=== PATIENT | female | born 1960 | race Asian ===

== ENCOUNTER 2017-01-28 14:10 | Emergency (ER) | payer OTHER ==
[2017-01-28 14:18] VITALS: BP 157/85
--- NOTE | 2017-01-28 14:30 | ED Physician Documentation ---
PD HPI SKIN - Stated complaint Stated Complaint: FACE ITCHING, SWELLING - Chief complaint Chief Complaint: Allergic Rx - History obtained from History obtained from: Patient - History of Present Illness Timing - onset: Other (The last 3 days or so without specific inciting factor she has had itchiness and facial swelling bilaterally. 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 - Present Medications Home Medications: Ambulatory Orders Medication Instructions Recorded Confirmed Hydrochlorothiazide 25 mg PO DAILY 01/25/15 01/28/17 Hydrocodone/Acetaminophen [[place] 1 each PO Q6H PRN #20 tablet 01/25/15 01/28/17 5-325 Tablet] Ibuprofen 600 mg PO TID #20 tablet 01/25/15 01/28/17 Atorvastatin Calcium 40 mg PO DAILY 01/28/17 01/28/17 hydrOXYzine PAMOATE [Vistaril] 25 mg PO Q6H PRN #15 capsule 01/28/17 predniSONE [Deltasone] 60 mg PO DAILY 5 Days tablet 01/28/17 - Allergies Allergies/Adverse Reactions: Allergies Allergy/AdvReac Type Severity Reaction Status Date / Time shellfish derived Allergy Intermediate Itching Verified 01/25/15 01:08 - Social History Does the pt smoke?: No Smoking Status: Never smoker Does the pt drink ETOH?: No Does the pt have substance abuse?: No - Immunizations Immunizations are current?: No Immunizations: TDAP >10years/unknown PD ED PE NORMAL - Vitals Vital signs reviewed: Yes - General General: Alert and oriented X 3, No acute distress - HEENT HEENT: PERRL, EOMI, Other (Mild edema both sides of the face, especially periorbital with some mild conjunctival injection. Airway is open without evidence of pharyngeal angioedema.) - Cardiac Cardiac: RRR, No murmur - Respiratory Respiratory: No respiratory distress, Clear bilaterally - Abdomen Abdomen: Non tender - Derm Derm: No rash - Neuro Neuro: Alert and oriented X 3, Normal speech Results - Vitals Vitals: Vital Signs - 24 hr 01/28/17 14:14 Temperature 36.7 C Heart Rate 79 Respiratory 16 Rate Blood Pressure 157/85 H O2 Saturation 100 Oxygen O2 Source Room air Departure - Departure Disposition: 01 Home, Self Care Clinical Impression: Facial swelling Condition: Good Record reviewed to determine appropriate education?: Yes Instructions: ED Allergic Reaction General Other Prescriptions: hydrOXYzine PAMOATE [Vistaril] 25 mg PO Q6H PRN #15 capsule PRN Reason: Itching predniSONE [Deltasone] 60 mg PO DAILY 5 Days tablet Comments: Call your doctor to arrange a follow-up appointment, make the next available appointment. In the interim, return anytime if worse or if new symptoms develop. Your blood pressure was elevated today on check into the emergency department. This does not mean that you have hypertension, it is a common phenomenon to come to the emergency department and have elevated blood pressure. I recommend that you see your primary care physician within the week to have it rechecked when you are feeling better.
== END 2017-01-28 14:33 | disposition home or self-care (01) ==
LOC: ED 14:10
DX: R22.9 Localized swelling, mass and lump, unspecified (principal); L29.9 Pruritus, unspecified; I10 Essential (primary) hypertension
CPT/HCPCS: 99283

== ENCOUNTER 2019-03-01 13:40 | Emergency (ER) | payer OTHER ==
[2019-03-01 13:47] VITALS: BP 141/79
[2019-03-01] MEDS ORDERED: DEXAMETHASONE 10 MG/ML VIAL PO STA (14:00)
[2019-03-01] MEDS ORDERED: CHERRY SYRUP 10 ML UDC PO ONE (14:00)
--- NOTE | 2019-03-01 14:03 | ED Physician Documentation ---
PD [facility] HEENT - Stated complaint Stated Complaint: SINUS ISSUES - Chief complaint Chief Complaint: Heent - History obtained from History obtained from: Patient, Family - History of Present Illness Timing - onset: How many months ago (4) Timing - duration: Months (4) Timing - details: Gradual onset, Still present, Waxing and waning Location: Sinuses Improves: Medication Associated symptoms: Congestion, Rhinorrhea, Facial swelling, Cough Similar symptoms before: Diagnosis (sinusitis) Recently seen: Not recently seen - Additional information Additional information: 58-year-old female has developed some nasal congestion and pressure in the maxillary sinus on the left side and she is had symptoms for quite some time. She went to the [facility] and is now come back and continues to have symptoms and she is now come in for treatment. She did take some nasal spray prior to leaving to go to the [facility] but she has not used medication in between. She does not have much in the way of a cough she does have some postnasal drip. She has not had fever. She does have pressure. Review of Systems Constitutional: denies: Fever Eyes: denies: Decreased vision Ears: denies: Ear pain Nose: reports: Rhinorrhea / runny nose, Congestion, Sinus pressure / pain Throat: denies: Sore throat Cardiac: denies: Chest pain / pressure, Palpitations Respiratory: reports: Cough. 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 - Present Medications Home Medications: Ambulatory Orders Medication Instructions Recorded Confirmed Hydrochlorothiazide 25 mg PO DAILY 01/25/15 01/28/17 Hydrocodone/Acetaminophen [[place] 1 each PO Q6H PRN #20 tablet 01/25/15 01/28/17 5-325 Tablet] Ibuprofen 600 mg PO TID #20 tablet 01/25/15 01/28/17 Atorvastatin Calcium 40 mg PO DAILY 01/28/17 01/28/17 hydrOXYzine PAMOATE [Vistaril] 25 mg PO Q6H PRN #15 capsule 01/28/17 predniSONE [Deltasone] 60 mg PO DAILY 5 Days tablet 01/28/17 Amox/Clav 875/125 [Augmentin] 1 each PO Q12H #20 tablet 03/01/19 - Allergies Allergies/Adverse Reactions: Allergies Allergy/AdvReac Type Severity Reaction Status Date / Time shellfish derived Allergy Intermediate Itching Verified 03/01/19 13:44 - Social History Does the pt smoke?: No Smoking Status: Never smoker Does the pt drink ETOH?: No Does the pt have substance abuse?: No - Immunizations Immunizations are current?: No Immunizations: TDAP >10years/unknown PD ED PE NORMAL - Vitals Vital signs reviewed: Yes (hypertensive mild ) - General General: Alert and oriented X 3, No acute distress, Well developed/nourished - HEENT HEENT: Atraumatic, PERRL, EOMI, Pharynx benign, Other (There is inflammation in the attic bilaterally to the TMs with distortion of the left TM. 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, No motor deficit, No sensory deficit, Normal speech Eye Opening: Spontaneous Motor: Obeys Commands Verbal: Oriented GCS Score: 15 - Psych Psych: Normal mood, Normal affect Results - Vitals Vitals: Vital Signs - 24 hr 03/01/19 13:44 Temperature 37.1 C Heart Rate 72 Respiratory 17 Rate Blood Pressure 141/79 H O2 Saturation 99 Oxygen O2 Source Room air PD MEDICAL DECISION MAKING - ED course Complexity details: reviewed old records, reviewed results, re-evaluated patient, considered differential, d/w patient, d/w family ED course: 58-year-old female with signs and symptoms of sinus infection for the past several months does appear to have sinusitis and she is administered dexamethasone 10 mg orally here and I recommend that she use nasal court on a regular basis. We will prescribe a course of Augmentin as well. Departure - Departure Disposition: 01 Home, Self Care Clinical Impression: Acute maxillary sinusitis Qualifiers: Recurrence: non-recurrent Qualified Code(s): J01.00 - Acute maxillary sinusitis, unspecified Otitis media Qualifiers: Otitis media type: suppurative Chronicity: acute Laterality: bilateral Recurrence: non-recurrent Spontaneous tympanic membrane rupture: without spontaneous rupture Qualified Code(s): H66.003 - Acute suppurative otitis media without spontaneous rupture of ear drum, bilateral Condition: Stable Instructions: ED Sinusitis Abx Tx Follow-Up: HANSA MAHMOOD [Primary Care Provider] - Prescriptions: Amox/Clav 875/125 [Augmentin] 1 each PO Q12H #20 tablet Comments: Today it appears you have a sinus infection and drainage is a tijer[place] element to this resolving. We recommend you use "nasalcort" available over the counter on a regular basis for the next 2 weeks.
== END 2019-03-01 14:18 | disposition home or self-care (01) ==
LOC: ED 13:40
DX: J01.00 Acute maxillary sinusitis, unspecified (principal); H66.003 Acute suppurative otitis media without spontaneous rupture of ear drum, bilateral; I10 Essential (primary) hypertension
CPT/HCPCS: 99282; 99284; A9270

== ENCOUNTER 2019-07-06 18:39 | Emergency (ER) | payer OTHER ==
[2019-07-06 18:54] VITALS: BP 188/118
[2019-07-06] MEDS ORDERED: CYCLOBENZAPRINE 10 MG TABLET PO STA (19:00)
--- NOTE | 2019-07-06 19:06 | ED Physician Documentation ---
History of Present Illness - Stated complaint Stated Complaint: RT SIDE NECK/SHOULDER PX - Chief complaint Chief Complaint: General - History obtained from History obtained from: Patient - History of Present Illness Timing: How many weeks ago (2) Pain level max: 5 Pain level now: 3 - Additonal information Additional information: 58-year-old female states that she has had right-sided neck and shoulder pain for the past 2 weeks. She started sleeping in a different bed with her grandchild. She states it is worse in the morning. Worse with movement and better with rest. No fevers. No trauma. No cough. No chest pain. No shortness of breath. Improves with Motrin. 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 - Present Medications Home Medications: Ambulatory Orders Medication Instructions Recorded Confirmed Hydrochlorothiazide 25 mg PO DAILY 01/25/15 01/28/17 Hydrocodone/Acetaminophen [[place] 1 each PO Q6H PRN #20 tablet 01/25/15 01/28/17 5-325 Tablet] Ibuprofen 600 mg PO TID #20 tablet 01/25/15 01/28/17 Atorvastatin Calcium 40 mg PO DAILY 01/28/17 01/28/17 hydrOXYzine PAMOATE [Vistaril] 25 mg PO Q6H PRN #15 capsule 01/28/17 predniSONE [Deltasone] 60 mg PO DAILY 5 Days tablet 01/28/17 Amox/Clav 875/125 [Augmentin] 1 each PO Q12H #20 tablet 03/01/19 Cyclobenzaprine [Flexeril] 10 mg PO TID PRN #14 tablet 07/06/19 - Allergies Allergies/Adverse Reactions: Allergies Allergy/AdvReac Type Severity Reaction Status Date / Time shellfish derived Allergy Intermediate Itching Verified 07/06/19 18:54 - Social History Does the pt smoke?: No Smoking Status: Never smoker Does the pt drink ETOH?: No Does the pt have substance abuse?: No - Immunizations Immunizations are current?: No Immunizations: TDAP >10years/unknown PD ED PE NORMAL - Vitals Vital signs reviewed: Yes - General General: Alert and oriented X 3, No acute distress, Well developed/nourished - HEENT HEENT: Moist mucous membranes - Neck Neck: Supple, no meningeal sign, No bony TTP, No JVD, No bruit, Other (Tender to palpation right paraspinal cervical region. 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 No evidence of carotid dissection. No evidence of vertebral injury. Will place on muscle relaxants for home. Patient is well-appearing, nontoxic. Afebrile. No meningitis. No subarachnoid hemorrhage. Patient counseled regarding signs and symptoms for which I believe and urgent re-evaluation would be necessary. Patient with good understanding of and agreement to plan and is comfortable going home at this time This document was made in part using voice recognition software. While efforts are made to proofread this document, sound alike and grammatical errors may occur. Departure - Departure Disposition: 01 Home, Self Care Clinical Impression: Neck muscle spasm Condition: Good Instructions: ED Spasm Neck No Injury Follow-Up: HANSA MAHMOOD [Primary Care Provider] - Within 1 week Prescriptions: Cyclobenzaprine [Flexeril] 10 mg PO TID PRN #14 tablet PRN Reason: Spasms Comments: Return if you worsen. The Flexeril will help with any muscle spasms. Continue Motrin and/or Tylenol as needed at home. Do not drive or operate heavy machinery while taking the Flexeril. Discharge Date/Time: 07/06/19 19:09
== END 2019-07-06 19:09 | disposition home or self-care (01) ==
LOC: ED 18:39
DX: M62.838 Other muscle spasm (principal); I10 Essential (primary) hypertension; E11.9 Type 2 diabetes mellitus without complications
CPT/HCPCS: 99282; 99284; A9270

== ENCOUNTER 2020-01-09 12:17 | Outpatient (CLI) | payer OTHER ==
--- NOTE | 2020-01-09 15:51 | MRI Report ---
PROCEDURE: Brain W/O INDICATIONS: HEADACHES, VISION CHANGE TECHNIQUE: Noncontrast axial T1 spin echo, axial T2 fast spin echo, sagittal and axial FLAIR, coronal T2 fast sp in echo, axial gradient echo, axial diffusion and ADC through the brain. COMPARISON: None. FINDINGS: Image quality: Excellent. CSF Spaces: Basal cisterns are patent. No extra-axial fluid collections. Ventricles are normal in size and shape. Brain: No intracranial masses or hemorrhage. Minimal punctate areas of T2/FLAIR hyperintensity are noted particularly within the subcortical white matter of the frontal lobes. [place]/white matter interf lisa is normal. Brainstem appears normal. Diffusion-weighted images demonstrate no acute ischemic in sult. No chronic ischemic insults. Normal intravascular flow voids are present. Skull and face: Calvarium has normal marrow signal. Orbits appear normal. Sinuses: There is present within the left mastoid air cells. Recommend correlation of potential sympt oms of mastoiditis. Scattered ethmoid and maxillary sinus mucosal thickening are noted. IMPRESSION: 1. No acute intracranial process. 2. Minimal punctate hyperintensities within the subcortical white matter as above suspicious for kirit y changes of chronic microvascular ischemia. Other etiologies such as migraine sequela, vasculitis or demyelinating disease should be considered if clinically appropriate. Reviewed by: Teresa Sloan MD on 01/09/2020 3:49 PM PDT Approved by: Teresa Sloan MD on 01/09/2020 3:49 PM PDT Station ID: [id number]
== END 2020-01-09 12:18 | disposition home or self-care (01) ==
LOC: DI 12:17
PROVIDERS: ATTEND Nurse Practitioner Family
DX: H53.2 Diplopia (principal)
CPT/HCPCS: 70551

== ENCOUNTER 2021-06-07 21:24 | Emergency (ER) | payer OTHER ==
[2021-06-07 21:57] LABS: BILIRUBIN,URINE NEGATIVE (NEGATIVE); GLUCOSE, URINE (UA) NEGATIVE (NEGATIVE); KETONES,URINE (UA) NEGATIVE (NEGATIVE); LEUKOCYTE ESTERASE, URINE LARGE (NEGATIVE); NITRITE,URINE POSITIVE (NEGATIVE); OCCULT BLOOD,URINE LARGE (NEGATIVE); PH,URINE 5.5 PH (5.0-7.5); PROTEIN,URINE 100 mg/dL (NEGATIVE); UROBILINOGEN,URINE 0.2 (NORMAL) E.U./dL (NORMAL)
[2021-06-07 21:59] LABS: CLARITY,URINE CLOUDY (CLEAR)
[2021-06-07 22:05] LABS: BACTERIA,URINE Few /HPF (None Seen); SQUAMOUS EPITHELIAL CELL,UR FEW Squamous (<= Few); WBC,URINE >25 /HPF (0-5)
--- NOTE | 2021-06-07 23:19 | ED Physician Documentation ---
PD HPI FEMALE - Stated complaint Stated Complaint: FEMALE /LT SIDE PX - Chief complaint Chief Complaint: Abd Pain - History obtained from History obtained from: Patient - History of Present Illness Timing - onset: How many days ago (2-3) Timing - details: Gradual onset Associated symptoms: Dysuria, Urinary frequency. 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 - Present Medications Home Medications: Ambulatory Orders Medication Instructions Recorded Confirmed Hydrocodone/Acetaminophen [[place] 1 each PO Q6H PRN #20 tablet 01/25/15 01/28/17 5-325 Tablet] Ibuprofen 600 mg PO TID #20 tablet 01/25/15 01/28/17 hydroCHLOROthiazide 25 mg PO DAILY 01/25/15 01/28/17 [Hydrochlorothiazide] Atorvastatin Calcium 40 mg PO DAILY 01/28/17 01/28/17 hydrOXYzine PAMOATE [Vistaril] 25 mg PO Q6H PRN #15 capsule 01/28/17 predniSONE [Deltasone] 60 mg PO DAILY 5 Days tablet 01/28/17 Amox/Clav 875/125 [Augmentin] 1 each PO Q12H #20 tablet 03/01/19 Cyclobenzaprine [Flexeril] 10 mg PO TID PRN #14 tablet 07/06/19 Nitrofurantoin [Macrobid] 100 mg PO BID #14 cap 06/07/21 Phenazopyridine HCl [Pyridium] 200 mg PO TID PRN #6 tablet 06/07/21 - Allergies Allergies/Adverse Reactions: Allergies Allergy/AdvReac Type Severity Reaction Status Date / Time shellfish derived Allergy Intermediate Itching Verified 07/06/19 18:54 - Social History Does the pt smoke?: No Smoking Status: Never smoker Does the pt drink ETOH?: No Does the pt have substance abuse?: No - Immunizations Immunizations are current?: No Immunizations: TDAP >10years/unknown PD ED PE NORMAL - Vitals Vital signs reviewed: Yes - General General: Alert and oriented X 3, No acute distress, Well developed/nourished - Abdomen Abdomen: Normal bowel sounds, Soft, Non tender, Non distended - Back Back: No CVA TTP Results - Vitals Vitals: Oxygen O2 Source Room air - Labs Labs: Microbiology 06/07/21 21:52 Urine Culture - Final Urine,Clean Catch Escherichia Coli Laboratory Tests 06/07/21 21:52 Urine Color YELLOW Urine Clarity CLOUDY Urine pH 5.5 Ur Specific [place] 1.020 Urine Protein 100 H Urine Glucose (UA) NEGATIVE Urine Ketones NEGATIVE Urine Occult Blood LARGE H Urine Nitrite POSITIVE H Urine Bilirubin NEGATIVE Urine Urobilinogen 0.2 (NORMAL) Ur Leukocyte Esterase LARGE H Urine RBC 11-25 H Urine WBC >25 H Ur Squamous Epith Cells FEW Squamous Urine Bacteria Few Ur Microscopic Review INDICATED Urine Culture Comments INDICATED PD MEDICAL DECISION MAKING - ED course Complexity details: considered differential, d/w patient ED course: c/o symptoms s/o UTI, and UA result is consistent with UTI. Given pyridium and macrobid with rx for both submitted to her pharmacy of choice. Departure - Departure Disposition: Home, Self Care Clinical Impression: Cystitis Condition: Good Instructions: ED UTI Cystitis Female Follow-Up: MAXI HOOVER PA-C [Primary Care Provider] - Prescriptions: Nitrofurantoin [Macrobid] 100 mg PO BID #14 cap Phenazopyridine HCl [Pyridium] 200 mg PO TID PRN #6 tablet PRN Reason: dysuria Comments: The results of your urinalysis are consistent with a urinary tract infection. An antibiotic was given in the emergency department as well as pyridium (a medication that sometimes helps with the discomfort of a urinary tract infection; be aware that this medication will turn your urine bright orange). Both of these medications have been prescribed, with the prescriptions having been electronically sent to [facility] in [place]. Discharge Date/Time: 06/07/21 23:41
[2021-06-07] MEDS ORDERED: PHENAZOPYRIDINE 100 MG TABLET PO STA (23:29)
[2021-06-07] MEDS ORDERED: NITROFURANTOIN MACRO 100 MG CAPSULE PO STA (23:29)
[2021-06-07 23:42] VITALS: BP 130/88
== END 2021-06-07 23:41 | disposition home or self-care (01) ==
LOC: ED 21:24
DX: N30.90 Cystitis, unspecified without hematuria (principal); E11.9 Type 2 diabetes mellitus without complications; I10 Essential (primary) hypertension
CPT/HCPCS: 81001; 87086; 87181; 99283; A9270; 81003

== ENCOUNTER 2021-06-25 09:37 | Emergency (ER) | payer OTHER ==
[2021-06-25] MEDS ORDERED: LIDOCAINE VISCOUS 2% 15 ML UDC MM STA (09:55)
[2021-06-25] MEDS ORDERED: MAG HYDROX/AL HYDROX/SIMETH 30 ML UDC PO STA (09:55)
[2021-06-25] MEDS ORDERED: FAMOTIDINE 20 MG TABLET PO STA (09:56)
--- NOTE | 2021-06-25 09:57 | ED Physician Documentation ---
History of Present Illness - Stated complaint Stated Complaint: THROAT/STOMACH PX - Chief complaint Chief Complaint: General - History obtained from History obtained from: Patient - Additonal information Additional information: Since yesterday at 9 AM she has had a sore throat worse with swallowing, it radiates down to the epigastric area. It is association with sour taste. She tried milk of magnesia which was not helpful. It is not worse with eating, nor is it worse with exertion. There is no shortness of breath with it. She has a history of type 2 diabetes on oral medications only, no insulin. No history of heart issues. 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 - Present Medications Home Medications: Ambulatory Orders Medication Instructions Recorded Confirmed hydroCHLOROthiazide 25 mg PO DAILY 01/25/15 06/25/21 [Hydrochlorothiazide] Atorvastatin Calcium 40 mg PO DAILY 01/28/17 06/25/21 Famotidine [Pepcid] 20 mg PO BID #60 tablet 06/25/21 Ibuprofen 600 mg PO TID PRN 06/25/21 06/25/21 - Allergies Allergies/Adverse Reactions: Allergies Allergy/AdvReac Type Severity Reaction Status Date / Time shellfish derived Allergy Intermediate Itching Verified 06/25/21 09:40 - Social History Does the pt smoke?: No Smoking Status: Never smoker Does the pt drink ETOH?: No Does the pt have substance abuse?: No - Immunizations Immunizations are current?: No Immunizations: TDAP >10years/unknown PD ED PE NORMAL - Vitals Vital signs reviewed: Yes - General General: Alert and oriented X 3, No acute distress - HEENT HEENT: PERRL, EOMI - Neck Neck: Supple, no meningeal sign, No bony TTP - Cardiac Cardiac: RRR, No murmur - Respiratory Respiratory: No respiratory distress, Clear bilaterally - Abdomen Abdomen: Normal bowel sounds, Soft, Non tender - Back Back: No CVA TTP, No spinal TTP - Derm Derm: Normal color, Warm and dry - Extremities Extremities: No edema, No calf tenderness / cord - Neuro Neuro: Alert and oriented X 3, Normal speech Results - Vitals Vitals: Vital Signs - 24 hr 06/25/21 06/25/21 06/25/21 09:41 10:18 10:59 Temperature 36.6 C Heart Rate 80 73 77 Respiratory 16 16 22 Rate Blood Pressure 135/78 H 121/76 139/89 H O2 Saturation 97 95 98 Oxygen O2 Source Room air - EKG (time done) 1030 Rate: Rate (enter#) (65) Rhythm: NSR Hartman: Normal Intervals: Normal SC QRS: Normal Ischemia: Normal ST segments PD MEDICAL DECISION MAKING - ED course ED course: 60-year-old woman presents with sore throat but also radiates down to the epigastrium and is associated with an acid taste. This is most likely GERD and she did feel much better after a GI cocktail and Pepcid, but ACS albeit unlikely was considered an EKG was normal. Departure - Departure Disposition: Home, Self Care Clinical Impression: GERD (gastroesophageal reflux disease) Qualifiers: Esophagitis presence: with esophagitis Esophagitis bleeding: without hemorrhage Qualified Code(s): K21.00 - Gastro-esophageal reflux disease with esophagitis, without bleeding Condition: Good Record reviewed to determine appropriate education?: Yes Instructions: GERD Dc Prescriptions: Famotidine [Pepcid] 20 mg PO BID #60 tablet Comments: I sent your prescription to [facility] in [place]. Examination any ache EKG are normal. Sounding like stomach acid would be causing the sore throat and stomach pain. Return for new or worsening symptoms or if not better tomorrow. Follow-up with your doctor this coming week for recheck. Call Sunday for first available appointment. Discharge Date/Time: 06/25/21 11:03
[2021-06-25 11:00] VITALS: BP 139/89
== END 2021-06-25 11:03 | disposition home or self-care (01) ==
LOC: ED 09:37
DX: K21.00 Gastro-esophageal reflux disease with esophagitis, without bleeding (principal)
CPT/HCPCS: 93005; 99282; 99283; A9270

== ENCOUNTER 2022-04-23 04:29 | Emergency (ER) | payer OTHER ==
[2022-04-23 04:42] VITALS: BP 160/91
--- NOTE | 2022-04-23 04:55 | ED Physician Documentation ---
History of Present Illness - Stated complaint Stated Complaint: CONGESTION/COUGH - Chief complaint Chief Complaint: Resp - Additonal information Additional information: Patient 61-year-old female presenting to the emergency department with 4 days of cough and congestion. Denies fever, chest pain or shortness of breath. Denies known sick contacts. Reports is fully immunized for the SARS COVID virus. Review of Systems Constitutional: denies: Fever Eyes: denies: Loss of vision Ears: denies: Loss of hearing Nose: reports: Rhinorrhea / runny nose, Congestion Cardiac: denies: Chest pain / pressure Respiratory: reports: Cough GI: denies: Nausea, Vomiting PD PAST MEDICAL HISTORY - Past Medical History Past Medical History: Yes Cardiovascular: Hypertension, High cholesterol Respiratory: None Neuro: None Endocrine/Autoimmune: Type 2 diabetes GI: GERD HEENT: None Derm: None - Past Surgical History Past Surgical History: Yes /[employer]: Hysterectomy, Oophrectomy - Present Medications Home Medications: Ambulatory Orders Medication Instructions Recorded Confirmed Amoxicillin 500 mg PO TID #20 cap 11/13/21 Atorvastatin Calcium 40 mg PO HS 11/13/21 11/13/21 Cetirizine [ZyrTEC] 10 mg PO DAILY #15 tablet 11/13/21 Telmisartan/Hydrochlorothiazid 1 tab PO DAILY 11/13/21 11/13/21 [Telmisartan-Hctz 80-25 mg Tab] dexAMETHasone [Decadron] 4 mg PO DAILY #5 tablet 11/13/21 metFORMIN [Glucophage] 500 mg PO BID 11/13/21 11/13/21 Oxymetazoline HCl [12 Hour Nasal 30 ml NS Q4HR #30 ml 04/23/22 [facility]] Pseudoephedrine HCl [Sudafed 240 mg PO DAILY #30 tab 04/23/22 24-Hour] - Allergies Allergies/Adverse Reactions: Allergies Allergy/AdvReac Type Severity Reaction Status Date / Time shellfish derived Allergy Intermediate Itching Verified 04/23/22 04:42 - Social History Does the pt smoke?: No Smoking Status: Never smoker Does the pt drink ETOH?: No Does the pt have substance abuse?: No - Immunizations Immunizations are current?: No Immunizations: TDAP >10years/unknown - POLST Patient has POLST: No PD ED PE NORMAL - General General: Alert and oriented X 3, No acute distress - HEENT HEENT: Atraumatic, Other (Boggy erythematous naris bilaterally.) - Neck Neck: Supple, no meningeal sign, No bony TTP, No adenopathy - Cardiac Cardiac: RRR - Respiratory Respiratory: No respiratory distress, Clear bilaterally - Abdomen Abdomen: Normal bowel sounds - Female Female : Deferred - Rectal Rectal: Deferred - Derm Derm: Normal color - Extremities Extremities: No deformity - Neuro Neuro: Alert and oriented X 3, 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 Clear aeration in all lung muniz. No indications pneumonia or bacterial infection in either history or physical exam. Patient did have boggy erythematous naris bilaterally. She was treated with Sudafed and oxymetazoline here in the emergency department. She was discharged with prescription for same. She does report that she has been taking Mucinex at home. She did request a viral screening and an RSVP panel was ordered however she decided she would leave the emergency department and follow-up with these results on her own. She was encouraged to follow-up carefully with primary care or return to the emergency department as needed. Final clinical impression: Viral illness. Departure - Departure Disposition: Home, Self Care Clinical Impression: Viral illness Prescriptions: Oxymetazoline HCl [12 Hour Nasal [facility]] 30 ml NS Q4HR #30 ml Pseudoephedrine HCl [Sudafed 24-Hour] 240 mg PO DAILY #30 tab Comments: Thank you for allowing us to care for you today at [facility]. He appear to be suffering from a viral infection. As we discussed, your respiratory viral panel which includes screening for influenza and COVID is pending at this time. Please contact us later in the morning for these results.You benefit from an oral and nasal decongestant. I have sent these to your preferred pharmacy, [facility] in [place]. Please drink plenty fluids. Please follow-up with your primary care doctor. If it anytime you develop new or worsening symptoms please not hesitate to return.
[2022-04-23] MEDS ORDERED: PSEUDOEPHEDRINE 30 MG TABLET PO STA (04:56)
[2022-04-23] MEDS ORDERED: OXYMETAZOLINE HCL 100 SPRAYS BOTTLE NAS STA (04:56)
[2022-04-23 05:58] LABS: B. PARAPERTUSSIS- RESP PCR PAN NOT DETECTED; B. PERTUSSIS- RESP PCR PANEL NOT DETECTED; C. PNEUMONIAE- RESP PCR PANEL NOT DETECTED; CORONAVIRUS 229E-RESP PCR NOT DETECTED; CORONAVIRUS HKU1-RESP PCR NOT DETECTED; CORONAVIRUS NL63-RESP PCR NOT DETECTED; CORONAVIRUS OC43-RESP PCR NOT DETECTED; HUMAN METAPNEUMOVIRUS NOT DETECTED; INFLUENZA A- RESP PCR PANEL NOT DETECTED; INFLUENZA B - RESP PCR PANEL DETECTED; M. PNEUMONIAE- RESP PCR PANEL NOT DETECTED; PARAINFLUENZA VIRUS 1 NOT DETECTED; PARAINFLUENZA VIRUS 2 NOT DETECTED; PARAINFLUENZA VIRUS 3 NOT DETECTED; PARAINFLUENZA VIRUS 4 NOT DETECTED; RHINOVIRUS/ENTEROVIRUS NOT DETECTED; RSV- RESP PCR PANEL NOT DETECTED; SARS-CoV-2 -RESP PCR PANEL NOT DETECTED
== END 2022-04-23 05:10 | disposition home or self-care (01) ==
LOC: ED 04:29
DX: J06.9 Acute upper respiratory infection, unspecified (principal); Z20.822 Contact with and (suspected) exposure to COVID-19
CPT/HCPCS: 87633; 99283; A9270